=== PATIENT | male | born 1970 | race Caucasian/White ===

== ENCOUNTER 2016-07-13 23:04 | Emergency (ER) | payer SELFPAY ==
[2016-07-14] MEDS ORDERED: DOXYCYCLINE HYCLATE 100 MG TABLET ONE (00:44)
[2016-07-14] MEDS ORDERED: DEXAMETHASONE 4 MG TABLET ONE (00:50)
--- NOTE | 2016-07-14 07:34 | RAD ---
Exam: Two-view chest COMPARISON: 08/24/2015 INDICATION: Cough and shortness of breath. FINDINGS: PA and lateral views of the chest were obtained. Cardiac silhouette is within normal limits. Lungs are well-inflated. There is no focal airspace disease or pleural effusion. Bones of the chest wall within normal limits. IMPRESSION: Negative two-view chest.
== END 2016-07-14 01:24 | disposition home or self-care (01) ==
LOC: ED 23:04
DX: J18.9 Pneumonia, unspecified organism (principal); J02.9 Acute pharyngitis, unspecified; E66.9 Obesity, unspecified; Z87.891 Personal history of nicotine dependence; Z79.899 Other long term (current) drug therapy
CPT/HCPCS: 71020; 99283 ×2; A9270 ×2